=== PATIENT | female | born 1950 | race Two or more races ===

== ENCOUNTER 2017-05-19 07:58 | Inpatient (IN) | payer OTHER ==
[~2017-05-19] VITALS: Ht 162.6 cm; Wt 72.6 kg
[2017-05-19] MEDS ORDERED: COZAAR25 MG PO (09:21)
[2017-05-19] MEDS ORDERED: FENOFIBRATE160 MG PO (09:21)
[2017-05-19] MEDS ORDERED: MELOXICAM15 MG PO (09:21)
[2017-05-19] MEDS ORDERED: IBANDRONATE SO150 MG PO (09:22)
[2017-05-19] MEDS ORDERED: VITAMIN D310000 UNIT PO (09:22)
[2017-05-27] MEDS ORDERED: GABAPENTIN800 MG PO (10:20)
[2017-05-27] MEDS ORDERED: DOCUSATE SODIU100 MG PO (10:20)
[2017-05-27] MEDS ORDERED: AMOX-CLAV 875-1 EACH PO (10:21)
[2017-05-27] MEDS ORDERED: PERCOCET 5-3251 EACH PO (10:22)
[2017-05-27] MEDS ORDERED: CLONAZEPAM1 MG PO (10:22)
== END 2017-05-27 13:04 | disposition home or self-care (01) | DRG 460 ==
LOC: SURH 08:30 → O/R 05-26 04:58 → PED 05-26 04:58 → SURH 05-26 08:30 → PED 05-26 11:39
PROVIDERS: Orthopaedic Surgery Orthopaedic Surgery of the Spine
PROC: 0SG00AJ Fusion of Lumbar Vertebral Joint with Interbody Fusion Device, Posterior Approach, Anterior Column, Open Approach (ICD-10-PCS; 2017-05-26)
PROC: 0ST20ZZ Resection of Lumbar Vertebral Disc, Open Approach (ICD-10-PCS; 2017-05-26)
PROC: 07DS3ZZ Extraction of Vertebral Bone Marrow, Percutaneous Approach (ICD-10-PCS; 2017-05-26)
PROC: 0SG00A0 Fusion of Lumbar Vertebral Joint with Interbody Fusion Device, Anterior Approach, Anterior Column, Open Approach (ICD-10-PCS; principal; 2017-05-26 08:30)
DX: M48.061 Spinal stenosis, lumbar region without neurogenic claudication (principal); M43.16 Spondylolisthesis, lumbar region; I10 Essential (primary) hypertension